=== PATIENT | female | born 1960 | race Caucasian/White ===

== ENCOUNTER 2017-05-18 13:59 | Outpatient (CLI) | payer OTHER ==
--- NOTE | 2017-05-18 14:35 | RAD ---
2 VIEWS RIGHT HIP: Date: 05/18/17 COMPARISON: None. HISTORY: Low back pain radiating down right hip, right hip pain. FINDINGS: There is mild to moderate superior joint space narrowing involving the right hip. There is subchondra l sclerosis of the acetabular roof. There is prominent lateral acetabular osteophyte formation with n o fracture or evidence of dislocation seen. IMPRESSION: Degenerative joint disease involving the right hip as described above. No fracture or dislocation. POS: [facility]
== END 2017-05-18 14:00 | disposition home or self-care (01) ==
LOC: TBSIIMAG 13:59
PROVIDERS: ATTEND Neurological Surgery
DX: M25.551 Pain in right hip (principal); M16.11 Unilateral primary osteoarthritis, right hip

== ENCOUNTER 2017-05-30 10:03 | Outpatient (CLI) | payer OTHER ==
--- NOTE | 2017-05-30 13:14 | MRI ---
MRI OF THE LUMBAR SPINE WITH AND WITHOUT CONTRAST: 05/30/2017 HISTORY: Lumbar spine surgery 20 years ago. Lumbar radiculopathy. Low back pain with pain radiating down bot h lower extremities. COMPARISON: None. TECHNIQUE: Multiplanar, multisequence MR imaging of the lumbar spine is provided with and without contrast. FINDINGS: The sagittal STIR imaging demonstrates no focal area of osseous marrow edema. Lumbar vertebral body height and alignment appear within normal limits. On the basis of five lumbar type vertebral bodies, the conus medullaris terminates at the L1 level. T12-L1: There is mild bilateral facet hypertrophy. There is anterior osteophyte formation. No sign ificant central canal or neural foraminal stenosis. L1-L2: Mild bilateral facet hypertrophy. Intervertebral disk height and signal intensity are within normal limits with no significant central canal or neural foraminal stenosis. L2-L3: There is mild bilateral facet hypertrophy, right greater than left. There is mild disk space narrowing and mild disk bulge with no associated central canal stenosis. No significant neural fora vamsi stenosis. L3-L4: Mild bilateral facet hypertrophy. There is disk space narrowing and disk desiccation. There is a small foraminal disk protrusion on the left with an associated annular tear. This leads to min imal left neural foramina stenosis. No significant central canal or right neural foraminal stenosis. L4-L5: There is moderate facet hypertrophy and hypertrophy of the ligamentum flavum with fluid signa l intensity within the bilateral facet joints. There is no significant central canal or neural rodney inal stenosis. L5-S1: There is disk space narrowing, disk desiccation, anterior osteophyte formation, and a very sm all central/left paracentral disk protrusion, which abuts but does not efface or displace the S1 nerv e root on the right. There is mild enhancement encircling the S1 nerve root on the right, suggesting a mild degree of scar in this region. Imaged retroperitoneal structures appear grossly unremarkable. There is suggestion of a hemilaminectomy on the right, at the S1 level. IMPRESSION: 1. Findings suggesting mild scar surrounding the S1 nerve root on the right. No significant central canal or neural foraminal stenosis is evident. 2. There is fluid within the L4-L5 facet joints bilaterally. This can be seen on the basis of insta bility. Flexion and extension radiographs advised. POS: [facility]
[2017-05-30] MEDS ORDERED: Gadobenate Dimeglumine 529 MG/1 ML (20ML VIAL) ONE (14:05)
== END 2017-05-30 10:04 | disposition home or self-care (01) ==
LOC: TBSIIMAG 10:03
PROVIDERS: ATTEND Neurological Surgery
DX: M54.16 Radiculopathy, lumbar region (principal)
CPT/HCPCS: 72158; A9579